=== PATIENT | female | born 1995 | race Caucasian/White ===

== ENCOUNTER 2019-09-01 15:36 | Emergency (ER) | payer BC ==
[2019-09-01] MEDS ORDERED: ASPIRIN 81 MG TABLET, CHEWABLE PO ONE (15:59)
--- NOTE | 2019-09-01 16:02 | ER Document Report ---
ED Medical Screen (RME) - General Chief Complaint: Chest Pain Stated Complaint: CHEST PAINS/ARM NUMBNESS Time Seen by Provider: 09/01/19 15:54 Mode of Arrival: Wheelchair Information source: Patient Notes: 23-year-old female presents to ED for complaint of chest pain going down the left arm for the last 2 to 3 days. She states she just moved to [place] from [place] about a week and a half ago. She denies any shortness of breath cough congestion or fevers. She states she also has PCOS and was seen for her primary care doctor in [place] in the end of July. She states she is on me tformin for the PCOS. She also has hypothyroid and is on levothyroxine for that. She takes medications for anxiety and depression. She states she does use a vapor cigarette drinks monthly does not use any drugs. States she has had her wisdom teeth removed in the past. Last menstrual period was in April. She is alert oriented respirations regular nonlabored speaking in full sentences. I have greeted and performed a rapid initial assessment of this patient. A comprehensive ED assessment and evaluation of the patient, analysis of test results and completion of medical decision making process will be conducted by an additional ED providers. - Related Data Allergies/Adverse Reactions: amoxicillin Allergy (Verified 09/01/19 16:00) codeine Adverse Reaction (Verified 09/01/19 16:00) Physical Exam - Vital signs Vitals: Temp Pulse Resp BP Pulse Ox 98.1 F 82 20 146/96 H 99 09/01/19 15:54 09/01/19 15:54 09/01/19 15:54 09/01/19 15:54 09/01/19 15:54 Course - Vital Signs Vital signs: Temp Pulse Resp BP Pulse Ox 98.1 F 82 20 146/96 H 99 09/01/19 15:54 09/01/19 15:54 09/01/19 15:54 09/01/19 15:54 09/01/19 15:54
--- NOTE | 2019-09-01 16:22 | RADIOLOGY REPORT (SQ) ---
EXAM DESCRIPTION: CHEST 2 VIEWS IMAGES COMPLETED DATE/TIME: 09/01/2019 4:12 pm REASON FOR STUDY: chest pain radiating down arm COMPARISON: None. EXAM PARAMETERS: NUMBER OF VIEWS: two views TECHNIQUE: Digital Frontal and Lateral radiographic views of the chest acquired. RADIATION DOSE: NA LIMITATIONS: none FINDINGS: LUNGS AND PLEURA: No opacities, masses or pneumothorax. No pleural effusion. MEDIASTINUM AND HILAR STRUCTURES: No masses or contour abnormalities. HEART AND VASCULAR STRUCTURES: Heart normal size. No evidence for failure. BONES: No acute findings. HARDWARE: None in the chest. OTHER: No other significant finding. IMPRESSION: NO ACUTE RADIOGRAPHIC FINDING IN THE CHEST. TECHNICAL DOCUMENTATION: JOB ID: [id number] 2010 [employer]- All Rights Reserved Reading location - IP/workstation name: [email or web address]
[2019-09-01 16:41] LABS: ABSOLUTE EOSINOPHILS # (AUTO) 0.1 10^3/uL (0.0-0.6); ABSOLUTE LYMPHOCYTES (AUTO) 2.8 10^3/uL (0.5-4.7); ABSOLUTE MONOCYTES (AUTO) 0.5 10^3/uL (0.1-1.4); ABSOLUTE NEUT (AUTO) 5.6 10^3/uL (1.7-8.2); BASOPHILS % (AUTO) 0.2 % (0-2); EOSINOPHILS % (AUTO) 1.1 % (0-6); LYMPHOCYTES % (AUTO) 30.6 % (13-45); MEAN CORPUSCULAR HGB CONC 35.2 g/dL (32.0-36.0); MEAN CORPUSCULAR VOLUME 91 fl (80-97); MONOCYTES % (AUTO) 5.8 % (3-13); PLATELET COUNT 346 10^3/uL (150-450); RED BLOOD COUNT 4.07 10^6/uL (3.72-5.28); RED CELL DISTRIBUTION WIDTH 13.2 % (11.5-14.0); SEGMENTED NEUTROPHILS % (AUTO) 62.3 % (42-78); TOTAL CELLS COUNTED % (AUTO) 100 %
[2019-09-01 16:54] LABS: ALBUMIN 4.2 g/dL (3.5-5.0); ALKALINE PHOSPHATASE 96 U/L (38-126); ANION GAP 7 (5-19); ASPARTATE AMINO TRANSFERASE 25 U/L (14-36); BILIRUBIN,TOTAL 0.3 mg/dL (0.2-1.3); BLOOD UREA NITROGEN 11 mg/dL (7-20); CALCIUM 9.4 mg/dL (8.4-10.2); CARBON DIOXIDE 27 mmol/L (22-30); CHLORIDE 103 mmol/L (98-107); GLUCOSE 93 mg/dL (75-110); POTASSIUM 4.5 mmol/L (3.6-5.0); TOTAL PROTEIN 7.6 g/dL (6.3-8.2)
--- NOTE | 2019-09-01 18:16 | ER Document Report ---
ED General - General Chief Complaint: Chest Pain Stated Complaint: CHEST PAINS/ARM NUMBNESS Time Seen by Provider: 09/01/19 15:54 Primary Care Provider: [facility] [Provider Group] - Follow up as needed [facility] [Provider Group] - Follow up as needed Mode of Arrival: Wheelchair Notes: 23-year-old female with polycystic ovarian syndrome and hypothyroidism on Synth roid presents with chest pressure intermittently for 2 days, today had about an hour and half of left arm tingling. No lip tingling hyperventilation or shortness of breath. Has been under lots of stress having just moved here and has no primary care follow-up. Compliant with Synthroid no neck pain or goiter. Denies sweating diarrhea nausea vomiting but does have some lower abdominal pain "my ovaries are aching" which happens intermittently with her PCOS. No vaginal bleeding or discharge. - Related Data Allergies/Adverse Reactions: amoxicillin Allergy (Verified 09/01/19 16:00) codeine Adverse Reaction (Verified 09/01/19 16:00) Past Medical History - General Information source: Patient - Social History Smoking Status: Current Every Day Smoker Frequency of alcohol use: Occasional Family History: None Patient has homicidal ideation: No Review of Systems - Review of Systems Notes: REVIEW OF SYSTEMS GEN: Denies fever, chills, weight loss ENT: Denies sore throat, nasal discharge, ear pain EYES: Denies blurry vision, eye pain, discharge CV: Pressure RESP: Denies cough, shortness of breath, wheezing GI: Nominal pain MSK: Denies joint pain/swelling, edema, SKIN: Denies rash, skin lesions LYMPH: Denies swollen glands/lymph nodes NEURO: Going. Denies headache, focal weakness or numbness, dizziness PSYCH: Denies depression, suicidal or homicidal ideation PHYSICAL EXAMINATION General: Wheeze. No acute distress, well-nourished Head: Atraumatic, normocephalic ENT: Mouth normal, oropharynx moist, no exudates or tonsillar enlargement Eyes: Conjunctiva normal, pupils equal, lids normal Neck: No JVD, supple, no guarding CVS: Normal rate, regular rhythm, no murmurs Resp: No resp distress, equal and normal breath sounds bilaterally GI: Nondistended, soft, no tenderness to palpation, no rebound or guarding Ext: No deformities, no edema, normal range of motion in upper and lower ext Back: No CVA or midline TTP Skin: No rash, warm Lymphatic: No lymphadeopathy noted Neuro: Awake, alert. Face symmetric. GCS 15. Physical Exam - Vital signs Vitals: Temp Pulse Resp BP Pulse Ox 98.1 F 82 20 146/96 H 99 09/01/19 15:54 09/01/19 15:54 09/01/19 15:54 09/01/19 15:54 09/01/19 15:54 Course - Re-evaluation Re-evalutation: 09/01/19 20:57 Atypical chest pain with no coronary risk factors normal EKG and troponindoubt ischemia or unstable angina. No further work-up indicated. TSH is incidentally slightly high, however she will need to follow-up with primary care for this as no evidence of thyroid emergency I would rather not adjust her thyroid medicine today. In terms of her low abdominal pain she is no tenderness history of the same is already on NSAID so I advised to continue this and referred her to women's health. Doubt torsion PID etc. I have discussed with the patient there likely diagnosis, aftercare plan, fol low-up plans and my usual and customary return precautions. They verbalized understanding of this. - Vital Signs Vital signs: Temp Pulse Resp BP Pulse Ox 98.1 F 80 20 141/81 H 100 09/01/19 18:46 09/01/19 18:46 09/01/19 18:46 09/01/19 18:46 09/01/19 18:46 - Laboratory Result Diagrams: 09/01/19 16:20 09/01/19 16:20 Laboratory results interpreted by me: 09/01/19 09/01/19 16:20 16:20 Sodium 136.5 L TSH 5.41 H - EKG Interpretation by Me EKG shows normal: Sinus rhythm Rate: Normal Rhythm: NSR When compared to previous EKG there are: Previous EKG unavailable Discharge - Discharge Clinical Impression: Chest pain Qualifiers: Chest pain type: unspecified Qualified Code(s): R07.9 - Chest pain, unspecified Condition: Good Disposition: HOME, SELF-CARE Instructions: Chest Wall Pain ([facility]) Additional Instructions: As we discussed your TSH is high which means that you need to increase your Synthroid but this should be done by primary care For your pelvic pain likely due to polycystic ovaries I am referring you to women's health. Referrals: [facility] [Provider Group] - Follow up as needed [facility] [Provider Group] - Follow up as needed
[2019-09-01 18:47] VITALS: BP 141/81
--- NOTE | 2019-09-01 19:56 | EKG REPORT ---
SEVERITY:- ABNORMAL ECG - SINUS RHYTHM RIGHT AXIS DEVIATION , L POST FASCICULAR BLOCK : Confirmed by: Raimundo Man MD 01-Sep-2019 19:55:52
== END 2019-09-01 18:46 | disposition home or self-care (01) ==
LOC: ER 15:36
DX: R07.9 Chest pain, unspecified (principal); R20.0 Anesthesia of skin; E28.2 Polycystic ovarian syndrome; E03.9 Hypothyroidism, unspecified; Z79.899 Other long term (current) drug therapy; Z88.1 Allergy status to other antibiotic agents; Z88.8 Allergy status to other drugs, medicaments and biological substances; F17.200 Nicotine dependence, unspecified, uncomplicated
CPT/HCPCS: 36415; 71046; 80053; 83690; 84443; 84484; 84703; 85025; 93005; 93010; 99285

== ENCOUNTER 2019-09-24 08:39 | Emergency (ER) | payer BC ==
[2019-09-24] MEDS ORDERED: ERYTHROMYCIN 0.5% OPH OINTMENT 3.5 GM (ER DISP) OS PRN (08:49)
--- NOTE | 2019-09-24 08:53 | ER Document Report ---
ED General - General Chief Complaint: Chemical Exposure in Eye Stated Complaint: CHEMICAL EYE EXPOSURE Time Seen by Provider: 09/24/19 08:49 Notes: 23-year-old female presents with right eye pain and her eye being glued shut. She was taking the lid off of nail [place] and the glass bottle broke and she thinks that either glass we were both got into her eye. Her eyes been glued shut for 1 hour. Unable to just check any visual changes because her eyes cannot open. - Related Data Allergies/Adverse Reactions: amoxicillin Allergy (Verified 09/01/19 16:00) codeine Adverse Reaction (Verified 09/01/19 16:00) Past Medical History - General Information source: Patient - Social History Smoking Status: Never Smoker Family History: None Review of Systems - Review of Systems Notes: REVIEW OF SYSTEMS GEN: Denies fever, chills, weight loss ENT: Denies sore throat, nasal discharge, ear pain EYES: Right eye pain and inability to open CV: Denies chest pain, palpitations, edema RESP: Denies cough, shortness of breath, wheezing GI: Denies abdominal pain, nausea, vomiting, diarrhea MSK: Denies joint pain/swelling, edema, SKIN: Denies rash, skin lesions LYMPH: Denies swollen glands/lymph nodes NEURO: Denies headache, focal weakness or numbness, dizziness PSYCH: Denies depression, suicidal or homicidal ideation PHYSICAL EXAMINATION General: No acute distress, well-nourished Head: Atraumatic, normocephalic ENT: Mouth normal, oropharynx moist, no exudates or tonsillar enlargement Eyes: Right glue on the lids and lashes of the right eye with the lids glued shut. Neck: No JVD, supple, no guarding CVS: Normal rate, regular rhythm, no murmurs Resp: No resp distress, equal and normal breath sounds bilaterally GI: Nondistended, soft, no tenderness to palpation, no rebound or guarding Ext: No deformities, no edema, normal range of motion in upper and lower ext Back: No CVA or midline TTP Skin: No rash, warm Lymphatic: No lymphadeopathy noted Neuro: Awake, alert. Face symmetric. GCS 15. Physical Exam - Vital signs Vitals: Temp Pulse Resp BP Pulse Ox 98.4 F 71 18 143/75 H 100 09/24/19 08:47 09/24/19 08:47 09/24/19 08:47 09/24/19 08:47 09/24/19 08:47 Course - Re-evaluation Re-evalutation: 09/24/19 10:28 Presents with injury to eyelid and possibly the cornea with glue, I will treated as superglue injury and attempt to loosen the glue to get her eye open with petroleum-based erythromycin ointment This was instilled on around both lids. After half an hour was still unable to dissolve glue or open her eye. Because of this we are unable to irrigate. I am attempt to call ophthalmology as of 10:20 AM of the [employer] operator has been busy multiple times. 09/24/19 11:03 Discussed with ophthalmology on-call commended warm compress eye patch and proceeding directly to his office for possible eyelash clipping and further ophthalmologic evaluation. Patient is amenable. - Vital Signs Vital signs: Temp Pulse Resp BP Pulse Ox 98.4 F 71 18 143/75 H 100 09/24/19 08:47 09/24/19 08:47 09/24/19 08:47 09/24/19 08:47 09/24/19 08:47 Discharge - Discharge Clinical Impression: Chemical exposure of eye Condition: Good Disposition: HOME, SELF-CARE Instructions: Antibiotic Therapy ([facility]) Additional Instructions: Please proceed directly to [address] to see the senior engineering specialist.
[2019-09-24 11:18] VITALS: BP 130/84
== END 2019-09-24 11:16 | disposition home or self-care (01) ==
LOC: ER 08:39
DX: S05.8X1A Other injuries of right eye and orbit, initial encounter (principal); H57.11 Ocular pain, right eye; X58.XXXA Exposure to other specified factors, initial encounter; Y92.009 Unspecified place in unspecified non-institutional (private) residence as the place of occurrence of the external cause; Z88.0 Allergy status to penicillin; Z88.6 Allergy status to analgesic agent
CPT/HCPCS: 99283